=== PATIENT | male | born 1940 | race Caucasian/White ===

== ENCOUNTER → 2017-09-07 | Outpatient (CLI) | payer MEDICARE, OTHER ==
[~2017-09-07] MED LIST: ASPI-183 PO; ATOR40TA16 PO; BUPIVACAINE/EPINEPHRINE 0.5% PF 30 ML VIAL ONE; CYCL10TA PO; FOLI800T PO; HYDR-3366 PO; HYDR-3580 PO; LOSA25TA PO; METO1TAB42 PO; VITA10002 PO; WALKER WHEELS/F1 MIS
[2017-09-07 12:59] LABS: BASOPHIL % 0.2 % (0.0-2.0); EOSINOPHIL # 0.2 TH/MM3 (0-0.4); EOSINOPHIL % 2.8 % (0.0-4.0); HEMATOCRIT 45.8 % (39.0-51.0); HEMOGLOBIN 15.8 GM/DL (13.0-17.0); LYMPH % 22.2 % (9.0-44.0); LYMPHOCYTE # 1.7 TH/MM3 (1.0-4.8); MEAN CORPUSCULAR HEMOGLOBIN 33.1 PG (27.0-34.0); MEAN CORPUSCULAR HGB CONC 34.5 % (32.0-36.0); MONO % 9.4 % (0.0-8.0); MONOCYTE # 0.7 TH/MM3 (0-0.9); NEUT % 65.4 % (16.0-70.0); PLATELET COUNT 214 TH/MM3 (150-450); RED BLOOD COUNT 4.77 MIL/MM3 (4.50-5.90); RED CELL DISTRIBUTION WIDTH 13.8 % (11.6-17.2); WHITE BLOOD COUNT 7.7 TH/MM3 (4.0-11.0)
[2017-09-07 13:03] LABS: PROTHROMBIN TIME - PATIENT 10.3 SEC (9.8-11.6)
[2017-09-07 13:12] LABS: ALBUMIN 4.2 GM/DL (3.4-5.0); ALT (GPT) 39 U/L (12-78); AST (GOT) 24 U/L (15-37); BICARBONATE 28.9 MEQ/L (21.0-32.0); BLOOD UREA NITROGEN 14 MG/DL (7-18); CALCIUM 9.4 MG/DL (8.5-10.1); CHLORIDE 103 MEQ/L (98-107); CREATININE 0.99 MG/DL (0.60-1.30); GLOMERULAR FILTRATION RATE 73 ML/MIN (>89); GLUCOSE,FASTING 101 MG/DL (74-99); SODIUM (NA) 140 MEQ/L (136-145)
[2017-09-07 13:14] LABS: ALKALINE PHOSPHATASE 71 U/L (45-117); TOTAL BILIRUBIN ADULT 0.8 MG/DL (0.2-1.0); TOTAL PROTEIN 8.1 GM/DL (6.4-8.2)
--- NOTE | 2017-09-07 13:49 | RADRPT ---
EXAM DATE: 09/07/2017 1:43 PM EDT AGE/SEX: 77 years / Male INDICATIONS: Evaluate for pneumonia, pneumothorax, or any communicable disease. Pre op lower back rosales rgery. CLINICAL DATA: This is the patient's initial encounter. Patient reports that signs and symptoms have been present for 1 day and indicates a pain score of 0/10. MEDICAL/SURGICAL HISTORY: None. None. COMPARISON: No prior exams available for comparison. FINDINGS: Sternal wires previous bypass are noted. Mild compensated cardiomegaly. Marked elevation right hemidiaphragm Lungs are clear. The portion of the bony skeleton visualized is unremarkable. CONCLUSION: Negative for acute disease. Electronically signed by: Trever Moon MD 09/07/2017 1:47 PM EDT
[2017-09-07 13:58] LABS: BILIRUBIN, URINE NEG (NEG); BLOOD, URINE NEG (NEG); GLUCOSE,URINE NEG (NEG); KETONE, URINE NEG (NEG); MUCUS URINE FEW /lpf (OCC); NITRITE,URINE NEG (NEG); SQUAMOUS EPITHELIAL CELL URINE <1 /hpf (0-5); URINE COLOR YELLOW (YELLW/STRAW); URINE LEUKOCYTE ESTERASE NEG (NEG)
--- NOTE | 2017-09-07 15:56 | EKG ---
Date Performed: 09/07/2017 Time Performed: 12:36:24 PTAGE: 77 years EKG: Sinus rhythm RIGHT BUNDLE BRANCH BLOCK INFERIOR MYOCARDIAL INFARCTION, OF INDETERMINATE AGE ABNORMAL ECG NO PREVIOUS TRACING DOCTOR: Zachary Betancourt Interpretating Date/Time 09/07/2017 15:56:00
== END ==
LOC: CPRE 12:09
PROVIDERS: ATTEND Neurological Surgery
DX: Z01.812 Encounter for preprocedural laboratory examination (principal); Z01.811 Encounter for preprocedural respiratory examination; Z01.810 Encounter for preprocedural cardiovascular examination; Z01.818 Encounter for other preprocedural examination; Z79.01 Long term (current) use of anticoagulants; M48.062 Spinal stenosis, lumbar region with neurogenic claudication; M51.36 Other intervertebral disc degeneration, lumbar region; M48.8X6 Other specified spondylopathies, lumbar region; M43.10 Spondylolisthesis, site unspecified
CPT/HCPCS: 36415; 71046; 80053; 81001; 85025; 85610; 85730; 86850; 86900; 86901; 87640; 87641; 93005

== ENCOUNTER 2017-09-08 06:14 | Inpatient (IN) | payer OTHER, MEDICARE ==
--- NOTE | 2017-09-07 18:49 | MH ---
cc: Edgardo Sebastian,Benitez Day,Shawn Hunter DATE OF ADMISSION: 09/08/2017 DATE OF ADMISSION: 09/08/2017 ADMITTING DIAGNOSIS: 1. Lumbar degenerative disk disease. 2. Lumbar spinal stenosis. HISTORY OF PRESENT ILLNESS: This is a 77-year-old male who we initially saw on 04/06/2017, when he presented for an evaluation of low back pain and bilateral buttocks pain. He has had progressively worsening low back pain since 2009. Over the last year, his pain has been really bad and he is miserable. He has previously seen Dr. Jang around 2009 and was referred to pain management and had injections, which helped some for the first few months, but not more recently. He has also seen pain management physicians locally in 2010 and the first injection helped and the second injection did not. He also had a spinal stimulator placed, which helped for a year and was less effective despite adjustments and he states that for the last year, he has been in much worse pain. He has pain that radiates into the buttocks bilaterally. He states that getting up and sitting down exacerbates his pain. He states he has difficulty with standing straight up and weakness in the lower extremities. He states he can only walk short distances before the back pain becomes severe and he has to sit down. He states his pain can reach 10/10. He has numbness in his feet and extends up to his waist. He has bowel and bladder urgency, although no jona incontinence. He states when he is having bowel movements, he does not know if he is going or done. He states he does have numbness in the rectal area. He denies any falls. He had his spinal stimulator removed so that he could have an MRI of the lumbar spine. He has also had physical therapy at [place] and he was informed that he did improve with physical therapy. He is using a cane to ambulate. He was initially seen on 04/06/2017 and then seen for followup on 08/27/2017, after the spinal stimulator was removed and an MRI was obtained. PAST MEDICAL HISTORY: Significant for history of myocardial infarction, sleep apnea with CPAP use, coronary artery disease, status post triple bypass, history of right common iliac aneurysm, history of herniorrhaphy, history of hypertension. CURRENT MEDICATIONS: He takes aspirin 325 mg p.o. daily, this was placed on hold prior to surgical intervention. atorvastatin 40 mg p.o. daily, multivitamin daily, folic acid daily, hydrocodone 10/325 p.o. every 4 hours p.r.n. pain, losartan 25 mg p.o. daily, metoprolol succinate ER 25 mg p.o. daily, vitamin B12 p.o. daily. ALLERGIES: HE HAS NO KNOWN DRUG ALLERGIES. SOCIAL HISTORY: The patient reports daily alcohol use. He is a former smoker. He quit in 2016. He is . Denies any illicit drug use. FAMILY HISTORY: His daughter has chronic back pain. His mother has heart disease. REVIEW OF SYSTEMS: CONSTITUTIONAL: He denies any fever or chills. EARS, NOSE AND THROAT: No pharyngitis or exudates, bloody drainage from his nose. CARDIOVASCULAR: He denies any chest pain or palpitations. RESPIRATORY: No cough or shortness of breath. GASTROINTESTINAL: No nausea, vomiting, abdominal pain. GENITOURINARY: No dysuria or hematuria. MUSCULOSKELETAL: Positive for low back pain. NEUROLOGIC: No difficulty with speech or memory. INTEGUMENTARY: No rashes or pruritus. ENDOCRINE: No polyuria or polydipsia. HEMATOLOGIC: No bruising or bleeding tendencies. PSYCHIATRIC: No anxiety, depression symptoms. PHYSICAL EXAMINATION: HEAD: Normocephalic, atraumatic. NECK: Supple. No carotid bruits heard on auscultation. LUNGS: Clear to auscultation bilaterally. HEART: Regular rate and rhythm. Normal S1, S2. ABDOMEN: Soft, nontender, positive bowel sounds. SKIN: Reveals he has evidence of poor circulation in the lower extremities with shiny, taut skin and hair missing from his lower extremities. They are cool to the touch also. MUSCULOSKELETAL: He has 0/5 EHL strength on the left. He cannot stand on the left toes, but can on the right. He has 4/5 strength in the lower extremities, otherwise, but he appears unstable when going from a sitting to a standing position. He ambulates with a cane. NEUROLOGIC: He is awake, alert and oriented. Cranial nerves 2-12 are grossly intact. His speech is fluent. Comprehension is good. Sensation is intact in the lower extremities to light touch. Reflexes are diminished in the Achilles bilaterally. Right patella is also diminished. Left patella is 2 plus. DATA REVIEWED: MRI of the lumbar spine reveals severe spinal stenosis at L3/L4, from facet and ligamentum flavum hypertrophy along with severe disk degeneration, with a grade 1 spondylolisthesis with endplate changes. There is also moderate L4/L5 stenosis and severe disk degeneration with facet arthropathy. He has moderate spinal stenosis at the L2-L3 and L5-S1 levels also noted. He has subcutaneous upper lumbar small fluid collection related to the recent spinal stimulator removal. IMPRESSION: This is a 77-year-old male with a chronic history of low back pain and severe neurogenic claudication with weakness in his lower extremities and a left foot drop. He relates about 10 years ago, he was diagnosed with lumbar spinal stenosis and given the option of surgery versus a spinal stimulator placement and decided on having a spinal stimulator placement at that time. The spinal stimulator has not been working or controlling his pain and he has subsequently had this removed and an MRI was obtained. He relates that with the use of a cane and a walker, he cannot ambulate more than 20 feet and has severe back pain despite the use of narcotic medications along with weakness in his legs, left more than right, with a left foot drop, which is chronic. He has undergone physical therapy without any relief or benefit. MRI of the lumbar spine revealed severe spinal stenosis at the L3-L4 level from facet and ligamentum flavum hypertrophy along with severe disk degeneration and a grade 1 spondylolisthesis with endplate changes. There is also moderate L4-L5 stenosis and severe disk degeneration and facet arthropathy. He has moderate spinal stenosis at the L2-L3 and L5-S1 levels also. He has a subcutaneous upper lumbar small fluid collection related to the recent spinal stimulator removal. The radiologist was concerned about the possibility of infection and a followup. We did obtain a sedimentation rate and white blood cell count, which are normal. PLAN: We have discussed treatment options and the patient is requesting to proceed with surgical intervention. We discussed an L2-S1 decompressive laminectomy with L3-L4 and L4-L5 transforaminal interbody fusion with pedicle screw fixation. The procedure as well as the risks, benefits, alternatives and recovery time was explained in great detail with the patient. We have discussed the risks involved with surgery include, but not limited to, bleeding, infection, muscle weakness, voice hoarseness, difficulty swallowing, heart attack, stroke, blood clots, nonfusion, scar tissue formation, among others. No guarantees were made to the patient and despite surgical intervention, he may not improve or even be worse after surgery. The patient states that he understands the procedure as well as the risks involved and is requesting to proceed and he was, therefore, scheduled accordingly. MD MAYRA Burks/BIANCA , 05:30 PM , 06:48 PM GILBERTO
[~2017-09-08] VITALS: Ht 177.8 cm; Wt 104.6 kg
[~2017-09-08 06:14] MED LIST changes: -BUPIVACAINE/EPINEPHRINE 0.5% PF 30 ML VIAL ONE; -CYCL10TA PO; -FOLI800T PO; -HYDR-3366 PO; -VITA10002 PO; -WALKER WHEELS/F1 MIS
[2017-09-08] MEDS: SODIUM CHLOR 0.9% 1000 ML INJ 1,000 ML IV SCH (07:00)
[2017-09-08] MEDS ORDERED: VANCOMYCIN 1 GM/200 ML PREMIX ON-CALL IV SCH (07:00)
[2017-09-08] MEDS ORDERED: METOPROLOL TARTRATE 25 MG TAB PO PRN (07:00)
[2017-09-08] MEDS ORDERED: SODIUM CHLORID 0.9% 500 ML IV PRN (07:00)
[2017-09-08] MEDS ORDERED: CHLORHEXIDINE GLUCONATE 2 % 1 PACK (2 CLOTHS) TOPICAL PRN (07:00)
[2017-09-08] MEDS ORDERED: LACTATED RINGER'S 1000 ML IV PRN (07:00)
[2017-09-08] MEDS ORDERED: POVIDONE IODINE 5% (ANTISEPSIS KIT) 4 APPLICATIONS EACH NARE PRN (07:00)
[2017-09-08] MEDS ORDERED: THROMBIN (TOPICAL) 5,000 UNIT VIAL ONE (07:10)
[2017-09-08] MEDS ORDERED: GELFOAM SIZE 100 ONE (07:10)
[2017-09-08] MEDS ORDERED: VANCOMYCIN HCL 1000 MG VIAL ONE ×2 (07:10→07:11)
[2017-09-08] MEDS ORDERED: ACETAMINOPHEN 1000 MG/100 ML 100 ML IV ONE (07:26)
[2017-09-08] MEDS ORDERED: DEXMEDETOMIDINE HCL 200 MCG/2 ML VIAL ONE (07:26)
[2017-09-08] MEDS ORDERED: PROPOFOL 500 MG/50 ML INJ 0 ML ONE (07:26)
[2017-09-08] MEDS ORDERED: FOLI800T PO (07:46)
[2017-09-08] MEDS ORDERED: VITA10002 PO (07:46)
[2017-09-08] MEDS ORDERED: DO NOT ADM ANY ANTICOAGULANT DRUGS PRN (14:54)
[2017-09-08] MEDS ORDERED: MIDAZOLAM HCL 2 MG/2 ML VIAL ONE (14:59)
[2017-09-08] MEDS: NS + KCL 20 MEQ INJ 1,000 ML IV SCH (15:02)
--- NOTE | 2017-09-08 15:07 | PD.OP ---
Benitez Lau MD Operative Report Date of Surgery: Sep 08, 2017 Preoperative Diagnosis: Intractable low back pain with severe neurogenic claudication; lumbar L3-4 and L4-5 severe spinal stenosis from facet and ligamentum flavum hypertrophy with associated degenerative disc disease and spondylolisthesis Postoperative Diagnosis: Same Procedure: Lumbar L3-4 and L4-5 transforaminal interbody fusion; L3, L4 and L5 decompressive laminectomies; L3-5 pedicle screw fixation; L3-4 and L4-5 interbody cage placement; microsurgical technique Anesthesia: General endotracheal by Lakeshia thrasher Surgeon: Edgardo Sebastian MD Financial Services Consultant(s): Heydi Freeman Operation and Findings: Following initiation of general endotracheal anesthesia, the patient had a Powers catheter placed along with sequential compression devices. A gram of vancomycin was administered intravenously and he was turned in a prone position on a Tylor frame, on a Nba table, and all pressure points adequately padded. The lumbosacral region was then prepped with Chloraprep and sterilely draped with Ioban along the usual sterile draping. A midline skin incision incorporating the previous spinal epidural stimulator placement incision was then made extending from the L3-L5 levels after infiltrating the skin with 0.5% Marcaine with epinephrine solution extending down through the fascia. The muscle fibers were split using avascular fatty plane and detached from the underlying facets, transverse process and lamina on the left side and a self- retaining retractor used for exposure. Intraoperative fluoroscopy was also used for level of confirmation along with microscope magnification for further dissection. There was significant facet and ligamentum flavum hypertrophy noted at the L3-4 and L4-5 levels. Left L3-4 and L4-5 medial portion of the facets was resected with a drill bit along with the lamina and there was severe foraminal and lateral recess/spinal stenosis from hypertrophied ligamentum flavum and facet which were decompressed bilaterally through the unilateral approach with gentle thecal sac retraction. There was extensive epidural scar tissue adherent to the dura at the L4-5 level which is dissected out but no CSF leak or dural perforation encountered. There was significant disc height collapse along with disc protrusion also leading to the foraminal stenosis at both levels. Epidural hemostasis was achieved with bipolar cautery and Gelfoam with thrombin. Subsequently entered into the disc space at the L3-4 and L4-5 level with a #15 blade and armaan were used for discectomy. I then placed PEEK cages packed with local autograft bone and more local autograft bone was packed adjacent to the cages in both interspaces for added interbody fusion. With placement of the cages, I was able to distract the interspace and opened up the foramen further bilaterally. Subsequently in order to facilitate the fusion and provide stabilization, pedicle screw fixation was undertaken using [place] spine screws on entry point at the left L3, L4 and L5 levels at the junction of the transverse process and facet. Subsequently using AP and lateral fluoroscopy tap and screw placement. The screws were then connected with a derek and locked in place with caps. The construct appeared very secure at this point. The area was then copiously irrigated with Vancomycin solution and powder. The retractors were removed and the bipolar cautery used for hemostasis. The muscle fascia was then approximated using 2-0 Vicryl interrupted stitches and then 3-0 Vicryl subcuticular stitches also placed in interrupted fashion. The final skin closure was completed with phyllis. A sterile dressing was then applied. The patient then turned in supine position, extubated and taken to recovery room. There were no intraoperative complications. All sponge and needle counts were correct at the end of procedure. Estimated blood loss about 250 ml. Edgardo Sebastian MD Sep 08, 2017 15:07
[2017-09-08] MEDS ORDERED: *morphine SULFATE 4 MG/ML PERIprocedure ONLY ONE (15:08)
[2017-09-08] MEDS ORDERED: MENTHOL LOZENGE BUCCAL PRN (15:15)
[2017-09-08] MEDS ORDERED: ACETAMINOPHEN 325 MG TAB PO PRN (15:15)
[2017-09-08] MEDS ORDERED: ALUMINUM/MAGNESIUM/SIMETH 30 ML CUP PO PRN (15:15)
[2017-09-08] MEDS ORDERED: BISACODYL 10 MG SUPP RECTAL PRN (15:15)
[2017-09-08] MEDS ORDERED: ACETAMINOPHEN/HYDROcodone 325 MG/10 MG TAB PO PRN ×2 (15:15)
[2017-09-08] MEDS ORDERED: cloNIDine HCL 0.1 MG TAB PO PRN (15:15)
[2017-09-08] MEDS ORDERED: SENNOSIDES 8.6 MG TAB PO PRN (15:15)
[2017-09-08] MEDS ORDERED: CALCIUM GLUCONATE INJ 1 GM in SODIUM CHLORIDE 0.9% INJ 100 ML IV PRN (15:15)
[2017-09-08] MEDS ORDERED: METOCLOPRAMIDE HCL 10 MG/2 ML VIAL IVS PRN (15:15)
[2017-09-08] MEDS ORDERED: MAGNESIUM HYDROXIDE SUSP 30 ML CUP PO PRN (15:15)
[2017-09-08] MEDS ORDERED: SODIUM CHLORIDE 0.9% FLUSH 10 ML FLUSH IV FLUSH PRN (15:15)
[2017-09-08] MEDS ORDERED: MORPHINE SULFATE 4 MG/ML INJ IV PUSH PRN (15:15)
[2017-09-08] MEDS ORDERED: MAGNESIUM SULFATE INJ 2 GM in SODIUM CHLORIDE 0.9% INJ 100 ML IV PRN (15:15)
[2017-09-08] MEDS ORDERED: PROMETHAZINE INJ 25 MG/ML VIAL IM PRN (15:15)
[2017-09-08] MEDS ORDERED: POTASSIUM CHLOR 20 MEQ PREMIX 100 ML IV PRN (15:15)
[2017-09-08] MEDS ORDERED: RESP: ALBUTEROL 2.5 MG/3 ML NEB (PRN) NEB (15:15)
[2017-09-08] MEDS: CYCLOBENZAPRINE HCL 10 MG TAB PO SCH (15:15)
[2017-09-08] MEDS ORDERED: LACTULOSE SYRUP 20 GM/30 ML CUP PO PRN (15:15)
[2017-09-08 15:53] LABS: AUTOMATED NEUTROPHIL # 8.8 TH/MM3 (1.8-7.7); BASOPHIL % 0.2 % (0.0-2.0); HEMATOCRIT 42.1 % (39.0-51.0); LYMPH % 3.7 % (9.0-44.0); LYMPHOCYTE # 0.3 TH/MM3 (1.0-4.8); MEAN CELL VOLUME 96.9 FL (80.0-100.0); MEAN CORPUSCULAR HEMOGLOBIN 32.3 PG (27.0-34.0); MEAN CORPUSCULAR HGB CONC 33.4 % (32.0-36.0); MEAN PLATELET VOLUME 7.9 FL (7.0-11.0); MONO % 1.5 % (0.0-8.0); MONOCYTE # 0.1 TH/MM3 (0-0.9); NEUT % 94.6 % (16.0-70.0); PLATELET COUNT 193 TH/MM3 (150-450); RED BLOOD COUNT 4.34 MIL/MM3 (4.50-5.90); RED CELL DISTRIBUTION WIDTH 14.1 % (11.6-17.2); WHITE BLOOD COUNT 9.3 TH/MM3 (4.0-11.0)
[2017-09-08 15:56] VITALS: BP 106/55; PULSE 88; RESP 16; TEMP 98; O2SAT 98
[2017-09-08 17:08] LABS: BICARBONATE 22.1 MEQ/L (21.0-32.0); CALCIUM 8.1 MG/DL (8.5-10.1); CREATININE 1.16 MG/DL (0.60-1.30); MAGNESIUM 1.7 MG/DL (1.5-2.5)
--- NOTE | 2017-09-08 17:14 | RADRPT ---
EXAM DATE: 09/08/2017 5:00 PM EDT AGE/SEX: 77 years / Male INDICATIONS: L2 to S1 laminectomy with fusion L3,L4 and L4,L5 with screw and derek placement. CLINICAL DATA: This is the patient's initial encounter. Patient reports that signs and symptoms have been present for 1 day and indicates a pain score of Nonresponsive. MEDICAL/SURGICAL HISTORY: None. None. COMPARISON: No prior exams available for comparison. FINDINGS: Postsurgical changes are noted in the lower lumbar spine. A left-sided posterior fixation derek extendi ng from L3 through L5 has been placed. Cages are identified in the L3-4 and L4-5 disc spaces. Lumbar alignment is well-maintained. CONCLUSION: Satisfactory appearance of the lumbar spine following L3-L5 fusion. Electronically signed by: Jim Arce MD 09/08/2017 5:13 PM EDT
[2017-09-08 20:00] VITALS: BP 115/70; PULSE 76; RESP 17; TEMP 98.5; O2SAT 98
[2017-09-08 20:42] VITALS: O2SAT 95
[2017-09-08] MEDS: SODIUM CHLORIDE 0.9% FLUSH 10 ML FLUSH IV FLUSH SCH (21:00)
[2017-09-08] MEDS ORDERED: ZOLPIDEM TARTRATE 5 MG TAB PO PRN (21:00)
[2017-09-08] MEDS: DOCUSATE SODIUM 50 MG/SENNA 8.6 MG TAB PO SCH (21:11)
[2017-09-08] MEDS: ATORVASTATIN 40 MG TAB PO SCH (21:11)
[2017-09-09 00:01] VITALS: BP 130/62; PULSE 67; RESP 17; TEMP 97.8; O2SAT 98
[2017-09-09] MEDS: CYCLOBENZAPRINE HCL 10 MG TAB PO SCH ×4 (00:06→22:48)
[2017-09-09] MEDS: NS + KCL 20 MEQ INJ 1,000 ML IV SCH ×2 (01:02→11:02)
[2017-09-09 04:00] VITALS: BP 114/62; PULSE 63; RESP 18; TEMP 98.3; O2SAT 97
[2017-09-09] MEDS: SODIUM CHLOR 0.9% 1000 ML INJ 1,000 ML IV SCH (07:00)
[2017-09-09] MEDS: LOSARTAN 25 MG TAB PO SCH (07:46)
[2017-09-09] MEDS: CYANOCOBALAMIN 1,000 MCG TAB PO SCH (07:46)
[2017-09-09] MEDS: DOCUSATE SODIUM 50 MG/SENNA 8.6 MG TAB PO SCH ×2 (07:46→21:15)
[2017-09-09] MEDS: FOLIC ACID 1 MG TAB PO SCH (07:46)
[2017-09-09] MEDS: METOPROLOL SUCCINATE 25 MG EXTENDED RELEASE TAB PO SCH (07:46)
[2017-09-09] MEDS: SODIUM CHLORIDE 0.9% FLUSH 10 ML FLUSH IV FLUSH SCH ×2 (07:48→21:15)
[2017-09-09 08:00] VITALS: BP 101/57; PULSE 75; RESP 18; TEMP 97.5; O2SAT 98
--- NOTE | 2017-09-09 08:40 | HHI.NSPN ---
(Austen Rollins) History Chief Complaint: Mild incisional pain with movement. (Austen Rollins) Interval History 09/09/17: Pt complains of mild incisional pain. He denies any radiculopathy in LEs. No paresthesias in LEs. He is urinating well after Powers removal this morning. (Austen Rollins) Review of Systems General: Negative for: fever, chills, insomnia Respiratory: Negative for: shortness of breath, cough, sputum Cardiovascular: Negative for: chest pain Gastrointestinal: Negative for: nausea, vomitting, diarrhea, constipation ( Austen Rollins) Exam Results Vital Signs Date Time Temp Pulse Resp B/P (MAP) Pulse Ox O2 Delivery O2 Flow Rate FiO2 09/09/17 04:00 98.3 63 18 114/62 (79) 97 09/08/17 20:42 Nasal Cannula 2.00 Intake and Output 09/09/17 09/09/17 09/10/17 08:00 16:00 00:00 Intake Total 1300 ml Output Total 2425 ml Balance -1125 ml (Austen Rollins) Physical Examination General: Pt awake and alert resting in bed. Eyes: Pupils equal. Sclera anicteric. Resp: CTA bilaterally. Heart: NSR no murmurs Abd: Soft positive bs Skin: Pt log rolled incision clean and dry. Causey in place. Mild blood on bandage. Bandage changed this am by RN. Muscle: Moves LEs with left EHL and dorsiflexion weakness 3/5. Otherwise 5/5 in LEs. Neuro: Pt awake and alert. Follows commands well. Speech clear and appropriate. Sensation intact in LEs. (Austen Rollins) Lab, Micro, Other Results Last Impressions Lumbar Spine X-Ray 09/08/17 0000 Signed Impressions: CONCLUSION: Satisfactory appearance of the lumbar spine following L3-L5 fusion. Laboratory Tests Test 09/08/17 15:33 White Blood Count 9.3 TH/MM3 Red Blood Count 4.34 MIL/MM3 Hemoglobin 14.0 GM/DL Hematocrit 42.1 % Mean Corpuscular Volume 96.9 FL Mean Corpuscular Hemoglobin 32.3 PG Mean Corpuscular Hemoglobin Concent 33.4 % Red Cell Distribution Width 14.1 % Platelet Count 193 TH/MM3 Mean Platelet Volume 7.9 FL Neutrophils (%) (Auto) 94.6 % Lymphocytes (%) (Auto) 3.7 % Monocytes (%) (Auto) 1.5 % Eosinophils (%) (Auto) 0.0 % Basophils (%) (Auto) 0.2 % Neutrophils # (Auto) 8.8 TH/MM3 Lymphocytes # (Auto) 0.3 TH/MM3 Monocytes # (Auto) 0.1 TH/MM3 Eosinophils # (Auto) 0.0 TH/MM3 Basophils # (Auto) 0.0 TH/MM3 CBC Comment DIFF FINAL Differential Comment Blood Urea Nitrogen 17 MG/DL Creatinine 1.16 MG/DL Random Glucose 164 MG/DL Calcium Level 8.1 MG/DL Magnesium Level 1.7 MG/DL Sodium Level 138 MEQ/L Potassium Level 4.6 MEQ/L Chloride Level 105 MEQ/L Carbon Dioxide Level 22.1 MEQ/L Anion Gap 11 MEQ/L Estimat Glomerular Filtration Rate 61 ML/MIN (Austen Rollins) Medical Decision Making Impression and Plan A: 77 y/o M s/p L3/L4 and L4/L5 TLIF with cage and pedicle screw fixation. P: Continue with pain control PT oob with brace on Pt will need to schedule staple removal 10-12 days post op. (Austen Rollins) Attending Statement The exam, history, and the medical decision-making described in the above note were completed with the assistance of the mid-level provider. I reviewed and agree with the findings presented. I attest that I had a [id number] encounter with the patient on the same day, and personally performed and documented my assessment and findings in the medical record. (Edgardo Sebastian MD) Asuten Rollins Sep 09, 2017 08:40 Edgardo Sebastian MD Sep 09, 2017 17:14
[2017-09-09 12:00] VITALS: BP 114/61; PULSE 84; RESP 17; TEMP 97.5; O2SAT 98
[2017-09-09] MEDS ORDERED: WALKER WHEELS/F1 MIS (14:37)
[2017-09-09 16:00] VITALS: BP 118/64; PULSE 81; RESP 18; TEMP 97.9; O2SAT 94
[2017-09-09 20:00] VITALS: BP 155/68; PULSE 109; RESP 18; TEMP 99.6; O2SAT 93
[2017-09-09] MEDS: ATORVASTATIN 40 MG TAB PO SCH (21:15)
[2017-09-10 00:01] VITALS: BP 131/71; PULSE 101; RESP 18; TEMP 99.1; O2SAT 93
[2017-09-10 04:00] VITALS: BP 130/68; PULSE 100; RESP 18; TEMP 98.9; O2SAT 95
[2017-09-10 08:00] VITALS: BP 121/61; PULSE 92; RESP 16; TEMP 99.6; O2SAT 91
[2017-09-10] MEDS: CYANOCOBALAMIN 1,000 MCG TAB PO SCH (09:20)
[2017-09-10] MEDS: METOPROLOL SUCCINATE 25 MG EXTENDED RELEASE TAB PO SCH (09:20)
[2017-09-10] MEDS: FOLIC ACID 1 MG TAB PO SCH (09:20)
[2017-09-10] MEDS: CYCLOBENZAPRINE HCL 10 MG TAB PO SCH (09:20)
[2017-09-10] MEDS: DOCUSATE SODIUM 50 MG/SENNA 8.6 MG TAB PO SCH (09:20)
[2017-09-10] MEDS: LOSARTAN 25 MG TAB PO SCH (09:21)
[2017-09-10] MEDS: SODIUM CHLORIDE 0.9% FLUSH 10 ML FLUSH IV FLUSH SCH (09:21)
--- NOTE | 2017-09-10 09:46 | HHI.NSPN ---
(Austen Rollins) History Chief Complaint: Mild incisional pain with movement. (Austen Rollins) Interval History 09/09/17: Pt complains of mild incisional pain. He denies any radiculopathy in LEs. No paresthesias in LEs. He is urinating well after Powers removal this morning. 09/10/17: Pt awake and alert. Sitting up in chair. Mild incisional pain. No radiculopathy in LEs. Numbness in LEs with some improvement. (Austen Rollins) Review of Systems General: Negative for: fever, chills, insomnia Respiratory: Negative for: shortness of breath, cough, sputum Cardiovascular: Negative for: chest pain Gastrointestinal: Negative for: nausea, vomitting, diarrhea, constipation ( Austen Rollins) Exam Results Vital Signs Date Time Temp Pulse Resp B/P (MAP) Pulse Ox O2 Delivery O2 Flow Rate FiO2 09/10/17 08:00 99.6 92 16 121/61 (81) 91 09/08/17 20:42 Nasal Cannula 2.00 Intake and Output 09/10/17 09/10/17 09/11/17 08:00 16:00 00:00 Intake Total 360 ml Output Total 550 ml Balance -190 ml (Austen Rollins) Physical Examination General: Pt awake and alert sitting up in chair. Eyes: Pupils equal. Sclera anicteric. Resp: CTA bilaterally. Heart: NSR no murmurs Abd: Soft positive bs Skin: No cyanosis or erythema. Muscle: Moves LEs with left EHL and dorsiflexion weakness 3/5. Otherwise 5/5 in LEs. Neuro: Pt awake and alert. Follows commands well. Speech clear and appropriate. Sensation intact in LEs. (Austen Rollins) Lab, Micro, Other Results Last Impressions Lumbar Spine X-Ray 09/08/17 0000 Signed Impressions: CONCLUSION: Satisfactory appearance of the lumbar spine following L3-L5 fusion. (Austen Rollins) Medical Decision Making Impression and Plan A: 77 y/o M s/p L3/L4 and L4/L5 TLIF with cage and pedicle screw fixation. P: Continue with pain control PT oob with brace on Pt will need to schedule staple removal 10-12 days post op. D/C planning. (Austen Rollins) Attending Statement The exam, history, and the medical decision-making described in the above note were completed with the assistance of the mid-level provider. I reviewed and agree with the findings presented. I attest that I had a [id number] encounter with the patient on the same day, and personally performed and documented my assessment and findings in the medical record. (Edgardo Sebastian MD) Austen Rollins Sep 10, 2017 09:46 Edgardo Sebastian MD Sep 10, 2017 12:20
[2017-09-10 12:00] VITALS: BP 137/58; PULSE 79; RESP 18; TEMP 97.8; O2SAT 97
[2017-09-10] MEDS ORDERED: CYCL10TA PO (12:22)
[2017-09-10] MEDS ORDERED: HYDR-3366 PO (12:22)
== END 2017-09-10 15:08 | disposition home or self-care (01) | DRG 455 ==
LOC: HSDI 06:14 → EDUNIT# 10:00 → N06B 15:57
PROVIDERS: ADMIT Neurological Surgery; ATTEND Neurological Surgery
PROC: 0SG10J1 Fusion of 2 or more Lumbar Vertebral Joints with Synthetic Substitute, Posterior Approach, Posterior Column, Open Approach (ICD-10-PCS; 2017-09-08)
PROC: 0ST20ZZ Resection of Lumbar Vertebral Disc, Open Approach (ICD-10-PCS; 2017-09-08)
PROC: 0SG10AJ Fusion of 2 or more Lumbar Vertebral Joints with Interbody Fusion Device, Posterior Approach, Anterior Column, Open Approach (ICD-10-PCS; principal; 2017-09-08 08:33)
DX: M48.062 Spinal stenosis, lumbar region with neurogenic claudication (principal); I10 Essential (primary) hypertension; G47.30 Sleep apnea, unspecified; G89.29 Other chronic pain; M21.372 Foot drop, left foot; M51.36 Other intervertebral disc degeneration, lumbar region; M43.16 Spondylolisthesis, lumbar region; M46.96 Unspecified inflammatory spondylopathy, lumbar region; I25.10 Atherosclerotic heart disease of native coronary artery without angina pectoris; I25.2 Old myocardial infarction; Z95.1 Presence of aortocoronary bypass graft; Z87.891 Personal history of nicotine dependence
CPT/HCPCS: 72100; 76000; 80048; 83735; 85025; 94150; C1713; J0131; J0690; J2250; J2270; J3010; J3370; J3480; J7120; L0627